=== PATIENT | male | born 1990 | race Two or more races ===

== ENCOUNTER 2016-09-03 02:03 | Emergency (ER) | payer SELFPAY ==
[~2016-09-03] VITALS: Ht 172.7 cm; Wt 78.0 kg
[2016-09-03] MEDS ORDERED: BALANCED SALT IRRIG SOLN 15ML IO ONE (04:00)
[2016-09-03] MEDS ORDERED: TETRACAINE 0.5% OPHTH DROPS 4ML OP ONE (04:00)
[2016-09-03] MEDS ORDERED: FLUORESCEIN SODIUM 1MG/STRIP OP ONE (04:00)
[2016-09-03] MEDS ORDERED: IBUPROFEN 600MG TABLET PO ONE (04:00)
[2016-09-03 04:10] VITALS: BP 129/71
== END 2016-09-03 05:40 | disposition home or self-care (01) ==
LOC: ER 05:38
DX: S05.02XA Injury of conjunctiva and corneal abrasion without foreign body, left eye, initial encounter (principal); F12.90 Cannabis use, unspecified, uncomplicated; X58.XXXA Exposure to other specified factors, initial encounter; Y93.89 Activity, other specified; Y92.69 Other specified industrial and construction area as the place of occurrence of the external cause; Y99.0 Civilian activity done for income or pay
CPT/HCPCS: 99284